=== PATIENT | male | born 1995 | race Caucasian/White ===

== ENCOUNTER 2019-06-03 11:33 | Emergency (ER) | payer SELFPAY ==
[2019-06-03 11:41] VITALS: BP 143/73
--- NOTE | 2019-06-03 11:48 | ER Document Report ---
ED Medical Screen (RME) - General Chief Complaint: Finger Injury Stated Complaint: RIGHT INDEX FINGER INJURY Time Seen by Provider: 06/03/19 11:47 Mode of Arrival: Ambulatory Information source: Patient Notes: 23-year-old male presented to ED for laceration to the right index finger after he cut it on a flywheel while working on a car this yesterday. Does not know when his last tetanus shot was. He is alert oriented respirations regular nonlabored speaking in full sentences. I have greeted and performed a rapid initial assessment of this patient. A comprehensive ED assessment and evaluation of the patient, analysis of test results and completion of medical decision making process will be conducted by an additional ED providers. - Related Data Allergies/Adverse Reactions: No Known Allergies Allergy (Verified 06/03/19 11:40) Physical Exam - Vital signs Vitals: Temp Pulse Resp BP Pulse Ox 98.4 F 85 18 143/73 H 100 06/03/19 11:39 06/03/19 11:39 06/03/19 11:39 06/03/19 11:39 06/03/19 11:39 Course - Vital Signs Vital signs: Temp Pulse Resp BP Pulse Ox 98.4 F 85 18 143/73 H 100 06/03/19 11:39 06/03/19 11:39 06/03/19 11:39 06/03/19 11:39 06/03/19 11:39
[2019-06-03] MEDS ORDERED: DIPH/PERTUSS(ACELL)/TETANUS VAC/PF 0.5 ML SYR (>=10YO) IM ONE (11:49)
[2019-06-03] MEDS ORDERED: ACETAMINOPHEN 325 MG TABLET PO ONE (11:49)
--- NOTE | 2019-06-03 12:33 | RADIOLOGY REPORT (SQ) ---
EXAM DESCRIPTION: FINGER RIGHT COMPLETED DATE/TIME: 06/03/2019 12:14 pm REASON FOR STUDY: laceraton right index finger COMPARISON: None. NUMBER OF VIEWS: Three views. TECHNIQUE: AP, lateral, and oblique images acquired of the right second finger. LIMITATIONS: None. FINDINGS: MINERALIZATION: Normal. BONES: No acute fracture or dislocation. No worrisome bone lesions. SOFT TISSUES: No soft tissue swelling. No foreign body. OTHER: No other significant finding. IMPRESSION: No acute bony abnormality. No radiopaque foreign body. COMMENT: SITE OF TRAUMA/COMPLAINT MARKED/STAMP COMPLETED: YES. TECHNICAL DOCUMENTATION: JOB ID: [id number] [employer]- All Rights Reserved Reading location - IP/workstation name: [email or web address]
[2019-06-03] MEDS ORDERED: CEPHALEXIN 500 MG CAPSULE PO ONE (12:47)
--- NOTE | 2019-06-03 12:50 | ER Document Report ---
HPI - HPI Time Seen by Provider: 06/03/19 11:47 Pain Level: 4 Context: Patient is a 23-year-old male presents to emergency department with chief complaint of laceration. Patient reports yesterday around lunch she was working on a vehicle when his finger was cut by a rotating piece of metal. Patient reports he does have a laceration over the finger of the right hand. Patient reports mild swelling. Patient reports pain with movement of the joint. Patient states his tetanus shot is not up-to-date. - MUSCULOSKELETAL Musculoskeletal: REPORTS: Extremity pain - R index finger Past Medical History - General Information source: Patient - Social History Smoking Status: Current Every Day Smoker Frequency of alcohol use: Occasional Drug Abuse: Marijuana Lives with: Family Family History: None Patient has suicidal ideation: No Patient has homicidal ideation: No - Past Medical History Cardiac Medical History: Reports: None Pulmonary Medical History: Reports: None EENT Medical History: Reports: None Neurological Medical History: Reports: None Endocrine Medical History: Reports: None Renal/ Medical History: Reports: None Malignancy Medical History: Reports None GI Medical History: Reports: None Musculoskeletal Medical History: Reports None Skin Medical History: Reports None Psychiatric Medical History: Reports: None Traumatic Medical History: Reports: None Infectious Medical History: Reports: None Surgical Hx: Negative Vertical Provider Document - CONSTITUTIONAL Agree With Documented VS: Yes Exam Limitations: No Limitations General Appearance: No Apparent Distress - INFECTION CONTROL TRAVEL OUTSIDE OF THE [place] IN LAST 30 DAYS: No - HEENT HEENT: Atraumatic, Normocephalic, PERRLA - NECK Neck: Normal Inspection - RESPIRATORY Respiratory: Breath Sounds Normal, No Respiratory Distress - CARDIOVASCULAR Cardiovascular: Regular Rate, Regular Rhythm - GI/ABDOMEN Gastrointestinal: Abdomen Soft, Abdomen Non-Tender, Normal Bowel Sounds - MUSCULOSKELETAL/EXTREMETIES Notes: Patient has a superficial half centimeter laceration above the PIP joint of the right index finger. There is no active bleeding. Patient does have good flexion and extension of the right index finger. Patient is able to bend at the DIP and PIP joint. There is no significant edema, erythema or drainage. - NEURO Level of Consciousness: Awake, Alert, Appropriate Course - Re-evaluation Re-evalutation: 06/03/19 12:52 Patient does have a superficial half centimeter laceration to the dorsal aspect of the right index finger located above the PIP joint. Patient has full flexion-extension of the finger. Due to the injury occurring yesterday I would not close the wound. It does appear to be superficial and does not need sutures anyway. We will clean the wound as ordered, place patient on oral antibiotics for prophylaxis. Patient instructed to keep the wound clean and dry and perform finger range of motion exercises. - Vital Signs Vital signs: Temp Pulse Resp BP Pulse Ox 98.4 F 85 18 143/73 H 100 06/03/19 11:39 06/03/19 11:39 06/03/19 11:39 06/03/19 11:39 06/03/19 11:39 - Diagnostic Test Radiology reviewed: Reports reviewed Radiology results interpreted by me: 06/03/19 12:53 Finger X-Ray 06/03/19 11:48 IMPRESSION: No acute bony abnormality. No radiopaque foreign body. Discharge - Discharge Clinical Impression: Finger injury Qualifiers: Encounter type: initial encounter Laterality: right Qualified Code(s): S69.91XA - Unspecified injury of right wrist, hand and finger(s), initial encounter Condition: Stable Disposition: HOME, SELF-CARE Additional Instructions: Today you are seen in emergency department for a right finger injury. We did obtain an x-ray which did not show acute bony abnormality which is a fracture d islocation. 24 hours after a laceration we do not typically repair the wound. It does appear if you would have came yesterday it would not need suture repair anyway. It is a very small laceration that is superficial. Your exam was reassuring as I do not suspect a tendon injury. You are at risk for infection so I am placing you on on oral antibiotic as a prophylaxis due to the mechanism of injury and the location of the laceration on the finger joint. Please monitor for signs of infection to include redness, drainage, foul-smelling odor, fever or redness that streaks up the hand and arm. If you have any the symptoms you do need to return immediately. Tetanus Immunization Given You have been given an immunization against tetanus. Please record this in your records. In general, a booster is needed only once every 10 years. The tetanus shot protects against tetanus or "lockjaw," which is a complication of certain wound infections (the tetanus shot cannot protect against the actual infection). The immunization site may become warm and red due to local reaction. If this occurs, apply warm compresses and take aspirin or ibuprofen to reduce inflammation and discomfort. Return for evaluation if the reaction becomes severe. Prescriptions: Cephalexin Monohydrate [Keflex 500 mg Capsule] 500 mg PO BID 5 Days #10 capsule Forms: Return to Work
== END 2019-06-03 12:56 | disposition home or self-care (01) ==
LOC: ER 11:33
DX: S61.210A Laceration without foreign body of right index finger without damage to nail, initial encounter (principal); W45.8XXA Other foreign body or object entering through skin, initial encounter; F17.200 Nicotine dependence, unspecified, uncomplicated
CPT/HCPCS: 90715

== ENCOUNTER 2019-06-25 11:47 | Emergency (ER) | payer SELFPAY ==
[2019-06-25] MEDS ORDERED: RINGERS SOLUTION,LACTATED 1,000 ML IV ONE (11:58)
[2019-06-25] MEDS ORDERED: ONDANSETRON 4 MG TAB.RAPDIS PO ONE (11:59)
--- NOTE | 2019-06-25 12:01 | ER Document Report ---
ED Medical Screen (RME) - General Chief Complaint: Vomiting Stated Complaint: VOMITING Time Seen by Provider: 06/25/19 11:56 Mode of Arrival: Ambulatory Information source: Patient Notes: 33-year-old male presented to ED for complaint of nausea and vomiting since Friday. He denies any diarrhea. He states he has a temp of 100.1 off and on for the last couple days. He states he does smoke 1/2 pack a day drinks once or twice a week no drugs no marijuana. He states he does work in [employer]. He states he has not been able to keep any food or fluids down since Friday. He denies any past medical or surgical history. He is alert oriented respirations regular nonlabored speaking in full sentences. I have greeted and performed a rapid initial assessment of this patient. A comprehensive ED assessment and evaluation of the patient, analysis of test results and completion of medical decision making process will be conducted by an additional ED providers. TRAVEL OUTSIDE OF THE [place] IN LAST 30 DAYS: No - Related Data Allergies/Adverse Reactions: No Known Allergies Allergy (Verified 06/03/19 11:40) Physical Exam - Vital signs Vitals: Temp Pulse Resp BP Pulse Ox 97.9 F 92 16 125/93 H 99 06/25/19 11:50 06/25/19 11:50 06/25/19 11:50 06/25/19 11:50 06/25/19 11:50 Course - Vital Signs Vital signs: Temp Pulse Resp BP Pulse Ox 97.9 F 92 16 125/93 H 99 06/25/19 11:50 06/25/19 11:50 06/25/19 11:50 06/25/19 11:50 06/25/19 11:50
[2019-06-25 12:39] LABS: ABSOLUTE BASOPHILS # (AUTO) 0.1 10^3/uL (0.0-0.2); ABSOLUTE EOSINOPHILS # (AUTO) 0.1 10^3/uL (0.0-0.6); ABSOLUTE LYMPHOCYTES (AUTO) 1.7 10^3/uL (0.5-4.7); ABSOLUTE MONOCYTES (AUTO) 0.6 10^3/uL (0.1-1.4); ABSOLUTE NEUT (AUTO) 6.5 10^3/uL (1.7-8.2); BASOPHILS % (AUTO) 0.6 % (0-2); EOSINOPHILS % (AUTO) 0.9 % (0-6); HEMATOCRIT 43.4 % (37.9-51.0); LYMPHOCYTES % (AUTO) 19.2 % (13-45); MEAN CORPUSCULAR HEMOGLOBIN 31.6 pg (27.0-33.4); MEAN CORPUSCULAR HGB CONC 34.7 g/dL (32.0-36.0); MEAN CORPUSCULAR VOLUME 91 fl (80-97); MONOCYTES % (AUTO) 6.4 % (3-13); PLATELET COUNT 267 10^3/uL (150-450); RED BLOOD COUNT 4.76 10^6/uL (4.35-5.55); RED CELL DISTRIBUTION WIDTH 13.6 % (11.5-14.0); SEGMENTED NEUTROPHILS % (AUTO) 72.9 % (42-78); TOTAL CELLS COUNTED % (AUTO) 100 %
[2019-06-25 12:40] LABS: APPEARANCE,URINE CLEAR; BILIRUBIN,URINE NEGATIVE (NEGATIVE); COLOR,URINE YELLOW; GLUCOSE, URINE NEGATIVE (NEGATIVE); KETONES,URINE NEGATIVE (NEGATIVE); PROTEIN,URINE NEGATIVE (NEGATIVE); UROBILINOGEN,URINE NEGATIVE mg/dL (<2.0)
[2019-06-25 13:14] LABS: ALBUMIN 4.3 g/dL (3.5-5.0); ALKALINE PHOSPHATASE 61 U/L (38-126); ANION GAP 8 (5-19); ASPARTATE AMINO TRANSFERASE 23 U/L (17-59); BILIRUBIN,DIRECT 0.1 mg/dL (0.0-0.4); BILIRUBIN,TOTAL 0.3 mg/dL (0.2-1.3); BLOOD UREA NITROGEN 11 mg/dL (7-20); CALCIUM 9.7 mg/dL (8.4-10.2); CARBON DIOXIDE 29 mmol/L (22-30); CHLORIDE 108 mmol/L (98-107); GLUCOSE 74 mg/dL (75-110); POTASSIUM 4.3 mmol/L (3.6-5.0); TOTAL PROTEIN 7.3 g/dL (6.3-8.2)
[2019-06-25 13:24] VITALS: BP 107/70
--- NOTE | 2019-06-25 13:24 | ER Document Report ---
HPI - HPI Time Seen by Provider: 06/25/19 11:56 Pain Level: Denies Notes: Patient is a 23-year-old male presenting to the emergency department with chief complaint of intermittent vomiting since Friday. This is been going on for 4 days now. Patient reports he has vomiting approximately once per day after he eats. He denies any fevers above 100.4. He denies any abdominal pain. He denies any diarrhea. - REPRODUCTIVE Reproductive: DENIES: : Past Medical History - General Information source: Patient - Social History Smoking Status: Current Every Day Smoker Frequency of alcohol use: Occasional Drug Abuse: None Family History: None Patient has suicidal ideation: No Patient has homicidal ideation: No - Medical History Medical History: Negative Past Surgical History: Reports: Hx Herniorrhaphy - Immunizations Immunizations up to date: Yes Vertical Provider Document - CONSTITUTIONAL Notes: PHYSICAL EXAMINATION: GENERAL: Well-appearing, well-nourished and in no acute distress. HEAD: Atraumatic, normocephalic. EYES: Pupils equal round and reactive to light, extraocular movements intact, sclera anicteric, conjunctiva are normal. ENT: Nares patent, oropharynx clear without exudates. Moist mucous membranes. NECK: Normal range of motion, supple without lymphadenopathy LUNGS: Breath sounds clear to auscultation bilaterally and equal. No wheezes rales or rhonchi. HEART: Regular rate and rhythm without murmurs ABDOMEN: Soft, nontender, nondistended abdomen. No guarding, no rebound. No masses appreciated. Musculoskeletal: Normal range of motion, no pitting or edema. No cyanosis. NEUROLOGICAL: Cranial nerves grossly intact. Normal speech, normal gait. Normal sensory, motor exams PSYCH: Normal mood, normal affect. SKIN: Warm, Dry, normal turgor, no rashes or lesions noted. - INFECTION CONTROL TRAVEL OUTSIDE OF THE [place] IN LAST 30 DAYS: No Course - Re-evaluation Re-evalutation: 06/25/19 13:22 Patient appears well, nontoxic, alert, answering all questions appropriately. Patient smiling and texting on his cell phone during my initial encounter. All lab work is unremarkable. Patient reports he feels much improved after administration of Zofran and IV fluids here in the emergency department. Patient's abdomen is soft and nontender, unlikely anything acute. Strict ED ret urn precautions were discussed, patient verbalizes understanding and agreement with same. - Vital Signs Vital signs: Temp Pulse Resp BP Pulse Ox 97.9 F 86 16 132/75 H 99 06/25/19 11:50 06/25/19 11:58 06/25/19 11:50 06/25/19 11:58 06/25/19 11:50 - Laboratory Result Diagrams: 06/25/19 12:18 06/25/19 12:18 Laboratory results interpreted by me: 06/25/19 06/25/19 12:05 12:18 Chloride 108 H Glucose 74 L Urine Ascorbic Acid 40 H Discharge - Discharge Clinical Impression: Vomiting Qualifiers: Vomiting type: unspecified Vomiting Intractability: non-intractable Nausea presence: unspecified Qualified Code(s): R11.10 - Vomiting, unspecified Condition: Stable Disposition: HOME, SELF-CARE Additional Instructions: Please take Zofran as prescribed. Push fluids. Eat a bland diet and then gradually advance as tolerated. Follow-up with your primary care provider in 1 to 2 days if not improving. Return to the emergency department with any new or worsening symptoms to include development of abdominal pain, persistent vomiting, fever greater than 100.4 or any other symptoms that is concerning to you. Prescriptions: Ondansetron [Zofran Odt 4 mg Tablet] 1 - 2 tab PO Q4H PRN #15 tab.rapdis PRN Reason: For Nausea/Vomiting Forms: Return to Work
== END 2019-06-25 13:34 | disposition home or self-care (01) ==
LOC: ER 11:47
DX: R11.10 Vomiting, unspecified (principal); F17.200 Nicotine dependence, unspecified, uncomplicated
CPT/HCPCS: 99283; 96360; 36415; 83690; 85025; 80053; 81001; S0119; J7120